=== PATIENT | male | born 1960 | race Caucasian/White ===

== ENCOUNTER → 2018-11-20 | Outpatient (CLI) | payer OTHER, SELFPAY ==
--- NOTE | 2018-11-20 08:31 | REP ---
Clinical: Lung screening. History smoking. Comparison: None Technique: Axial low-dose noncontrast images from the thoracic inlet to the upper abdomen using lung screening technique. Findings: The lung cole are well-aerated. Few small noncalcified nodules are identified measuring up to 6 mm (image 30). No pleural effusion/reaction or pneumothorax. Tracheobronchial tree is patent. Mediastinum demonstrates mild atherosclerotic changes of the coronary arteries without cardiomegaly. Impression: Lung-RADS category III. Management recommendations include 6-month low-dose follow-up CT. Probability of malignancy at 1-2%. Electronically Signed by Slade Banks MD 11/20/2018 08:23 A
== END ==
LOC: M RAD 07:45
PROVIDERS: ATTEND Internal Medicine Pulmonary Disease
DX: Z87.891 Personal history of nicotine dependence (principal); R91.8 Other nonspecific abnormal finding of lung field

== ENCOUNTER → 2018-12-22 | Outpatient (CLI) | payer OTHER ==
--- NOTE | 2018-12-28 19:11 | SLEEPHOME ---
DATE OF PROCEDURE: 12/22/2018 ORDERED BY: Dr. Hilario Diagnostic home sleep testing was performed due to concern for the obstructive sleep apnea syndrome in this patient with history of nonrestorative sleep and excessive somnolence. For testing a nocturnal T3 respiratory monitoring device was used. Continuous record was made of pulse, oxygen saturation, airflow, chest, abdominal strain and body position. 9 hours and 59 minutes of data were reviewed. There were 8 hours and 15 minutes marked as time in bed. During the interval marked time in bed, there were 178 respiratory events identified of 10 seconds in duration or greater for a respiratory disturbance index of 21.5. The events were primarily obstructive. Baseline pulse rate 66 beats minute. Pulse rate ranged 52-100. Baseline saturation 91%. Lowest oxygen saturation appreciated was 77%. Testing was performed in both the supine and nonsupine positions. IMPRESSION: Abnormal home sleep testing with repetitive respiratory events and oxygen desaturations to 77% with a respiratory event index of 21.5 is consistent with the obstructive sleep apnea syndrome. RECOMMENDATIONS: The patient should be encouraged to undergo a formal sleep evaluation and in laboratory pressure titration.
== END ==
LOC: M SLEEP HO 10:25
PROVIDERS: ATTEND Internal Medicine Pulmonary Disease
DX: R40.0 Somnolence (principal)

== ENCOUNTER → 2019-05-02 | Outpatient (REF) | payer OTHER | LOC: M LAB REF 17:25 | PROVIDERS: ATTEND Internal Medicine Pulmonary Disease | DX: J44.9 Chronic obstructive pulmonary disease, unspecified (principal) ==

== ENCOUNTER → 2019-05-09 | Outpatient (CLI) | payer OTHER ==
--- NOTE | 2019-05-09 15:16 | REP ---
Clinical: Obstructive sleep apnea . Comparison: None . Technique: PA and lateral. Findings: The mediastinum and cardiac silhouette are normal. The lung cole demonstrate chronic-appearing interstitial changes without acute consolidation, effusion, or pneumothorax. The skeletal structures are intact and normal. Impression: 1. No acute cardiopulmonary process. Electronically Signed by Slade Banks MD 05/09/2019 03:07 P
== END ==
LOC: M SMT 14:52
PROVIDERS: ATTEND Internal Medicine Pulmonary Disease
DX: G47.33 Obstructive sleep apnea (adult) (pediatric) (principal)

== ENCOUNTER → 2019-05-22 | Outpatient (CLI) | payer OTHER ==
--- NOTE | 2019-05-22 08:01 | REP ---
Clinical: Pneumonia. Technique: Axial noncontrast images from the thoracic inlet to the upper abdomen with coronal and sagittal re-formations. Comparison: 11/20/2018. Findings: Mild/moderate COPD and emphysematous changes are again appreciated. Few scattered small noncalcified nodules measuring up to approximately 6 mm at the subpleural posterior right upper lobe (image 32) remains stable. No acute consolidation or pleural effusion. No pneumothorax. Incidental azygos fissure noted. No adenopathy. Atherosclerotic changes to the thoracic aorta and coronary arteries noted without aneurysm. No cardiomegaly or pericardial effusion. Musculoskeletal structures demonstrate age-related changes without focal osseous abnormality. Limited upper abdomen demonstrates 2.3 cm right adrenal adenoma. Impression: 1. Mild/early moderate COPD and emphysematous changes with few scattered stable noncalcified nodules up to 6 mm. Consider 12-month follow-up examination unless prior examinations are available for comparison. 2. No acute mediastinal or pleuroparenchymal process appreciated. No obvious consolidation or effusion. 3. 2.3 cm benign right adrenal adenoma. Electronically Signed by Slade Banks MD 05/22/2019 07:53 A
== END ==
LOC: M RAD 07:27
PROVIDERS: ATTEND Internal Medicine Pulmonary Disease
DX: J18.9 Pneumonia, unspecified organism (principal)

== ENCOUNTER → 2022-02-15 | Outpatient (CLI) | payer OTHER ==
[~2022-02-15] MED LIST: ISOVUE-370 76% 100ML VIAL As Ordered ONE
== END ==
LOC: M RAD 14:25
PROVIDERS: ATTEND Nurse Practitioner Family
DX: C64.2 Malignant neoplasm of left kidney, except renal pelvis (principal); N28.1 Cyst of kidney, acquired
CPT/HCPCS: 74170; Q9967

== ENCOUNTER → 2022-06-11 | Outpatient (CLI) | payer OTHER | LOC: M RAD 17:54 | PROVIDERS: ATTEND Physician Assistant | DX: S60.451A Superficial foreign body of left index finger, initial encounter (principal) ==

== ENCOUNTER → 2023-02-10 | Outpatient (CLI) | payer OTHER | LOC: M RAD 10:45 | PROVIDERS: ATTEND Urology | DX: C64.2 Malignant neoplasm of left kidney, except renal pelvis (principal); N28.1 Cyst of kidney, acquired; D35.00 Benign neoplasm of unspecified adrenal gland; K57.90 Diverticulosis of intestine, part unspecified, without perforation or abscess without bleeding | CPT/HCPCS: 74178; Q9967 ==